=== PATIENT | male | born 1975 | race Caucasian/White ===

== ENCOUNTER → 2017-01-16 | Outpatient (REF) ==
[~2017-01-16] MED LIST: AMITRIPTYLINE H75 M1 PO; FLEXERIL 1010 MG/TAB PO; LIPITOR20 MG PO; MOBIC15 MG PO; NORCO 325 MG-51 TAB PO; PRILOSEC 20MG20 MG PO; ROBAXIN 50500 MG/TAB PO
== END ==
LOC: WSOH 12:38
DX: Z00.00 Encounter for general adult medical examination without abnormal findings (principal)